=== PATIENT | male | born 1960 | race Caucasian/White ===

== ENCOUNTER 2019-08-10 08:27 | Day surgery (SDC) | payer BC ==
[~2019-08-10 08:27] MED LIST: ACETAMINOPHEN 1,000 MG/100 ML BTL IVPB ONE; CEFAZOLIN 2 Gram 2 GM/50 ML BAG IVPB ONE
[2019-08-10] MEDS ORDERED: LIDOCAINE 2% MDV (20MG/ML) 20ML VIAL IV ONE (08:28)
[2019-08-10] MEDS ORDERED: *PACU ONLY* KETAMINE HCL 10 MG/ML (20ML) VIAL IV ONE (08:28)
[2019-08-10] MEDS ORDERED: BUPIVACAINE 0.25% MPF 30ML VIAL IVP ONE (08:28)
[2019-08-10] MEDS ORDERED: PROPOFOL 10 MG/ML VIAL IV ONE (08:28)
[2019-08-10] MEDS ORDERED: MIDAZOLAM HCL 2MG/2ML VIAL IV ONE (08:28)
[2019-08-10] MEDS ORDERED: BUPIVACAINE LIPOSOME/PF 133MG/10ML VIAL IV ONE (08:28)
[2019-08-10] MEDS ORDERED: DEXAMETHASONE 4 MG/ML 1ML VIAL IVP ONE (08:28)
[2019-08-10] MEDS ORDERED: GLYCOPYRROLATE 0.2 MG/ML ML IV ONE (08:28)
[2019-08-10] MEDS ORDERED: FENTANYL PF 100MCG/2ML VIAL IV ONE (08:28)
[2019-08-10] MEDS ORDERED: RINGERS SOLUTION,LACTATED 1,000 ML IV ONE ×2 (09:15→11:13)
[2019-08-10] MEDS ORDERED: BUPIVACAINE 0.5% W/EPI MPF 30 ML VIAL SQ ONE (11:12)
[2019-08-10] MEDS ORDERED: METHYLPREDNISOLONE 40MG/VIAL IU ONE (11:12)
[2019-08-10] MEDS ORDERED: MORPHINE SULFATE 10MG/1ML **1ML VIAL IU ONE (11:12)
[2019-08-10] MEDS ORDERED: FENTANYL PF 100MCG/2ML VIAL IVP ONE (12:20)
--- NOTE | 2019-08-11 09:00 | Operative Note ---
DATE OF SURGERY: 08/10/2019 PREOPERATIVE DIAGNOSIS: Tear of the rotator cuff on the left. POSTOPERATIVE DIAGNOSES: 1. Massive tear of the rotator cuff on the left. 2. Diffuse synovitis. 3. 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 4. External impingement. 5. Arthrosis left distal clavicle. OPERATION: 1. Left shoulder arthroscopy with synovectomy and interarticular debridement. 2. Left shoulder open acromioplasty, CA ligament resection, subacromial bursectomy. 3. Left shoulder distal clavicle resection. STAFF SURGEON: Juan Antonio Andrea MD ANESTHESIA: Block plus IV sedation. PREPARATION: Chloraprep. INDIVIDUAL CONSIDERATIONS: None. PROCEDURE: The patient was taken to the operating room, placed supine on the operating room table. He had a successful induction of block and then was placed in a semi-seated beach chair position and given IV sedation. His left arm and shoulder were prepped and draped in the usual fashion. Examination under anesthesia showed no instability and good motion. The patient had posterior portal identified for arthroscopy. Skin was infiltrated with 0.5% Marcaine with epinephrine prior. An 18-gauge spinal needle was easily placed in the joint, and the joint was inflated with normal saline. A stab wound was made, and a blunt-tipped trocar for the scope was easily placed in the joint. The joint was inflated with normal saline. An anterior accessory portal was then made just inferior to the intact long head of the biceps tendon in a retrograde fashion with a Wissinger duong, and the joint was completely irrigated out. The patient had an obvious massive tear of the rotator cuff. The labrum was okay. Diffuse synovitis was debrided with a shaver. Glenohumeral joint looked good on the glenoid side. On the humeral side, small area of grade 3 inferiorly which was smoothed with a shaver. Subscap tendon was intact. Long head was intact. After irrigation, portals were closed with juan. The patient had an anterior approach to the subacromial space and distal clavicle. Sharp dissection carried down through skin and subcutaneous tissues. Small veins were coagulated with a Bovie. An anterior deltoid interval was developed. Care was taken not to split the deltoid more than about 4 cm distal to the anterior tip of the acromion to prevent injury to the axillary nerve. Once in the subacromial space, there was a large james of fluid. The deltoid was then taken subperiosteally off the anterior aspect of the acromion, over the top of the intact CA ligament, and off the anterior aspect of a highly degenerated distal clavicle. CA ligament was resected with a Bovie. Distal clavicle was resected with an oscillating saw taking about 1 cm. He had a downsloping acromion, and about 7-8 mm of acromion anteriorly tapering towards posteromedially to include the spurs at the AC joint was resected. The undersurface was smoothed with a rasp. Extremely hypertrophic bursa was then debrided out, and I had a good look at the cuff. Basically, most if it was missing. There was a small whisp of muscle from the teres minor out back but infraspinatus and supraspinatus were basically gone. Subscap I would say 80% remained. Long head remained. There was obviously nothing to repair. After irrigation, the deltoid was reattached to the remaining acromion with multiple #2 Vicryl going directly through the bony acromion. The periosteal cuff of the distal clavicle was closed with running #2 Vicryl. Anterior deltoid interval was closed with running #1 Vicryl. Subcu was closed with 2-0 plus Vicryl and skin was closed with juan. An 18-gauge spinal needle was placed into the subacromial space. It was injected with 15 mL of 0.5% Marcaine with epinephrine along with 10 mg of morphine and 40 mg of Depo-Medrol. A sterile bulky compressive dressing and sling were applied. The patient tolerated the procedure well. Needle and sponge counts were correct. Estimated blood loss was minimal. He was taken back to recovery in good condition. There were no complications. [facility]
== END 2019-08-10 13:03 | disposition home or self-care (01) ==
LOC: SUR 08:27
PROVIDERS: ATTEND Orthopaedic Surgery
DX: M75.101 Unspecified rotator cuff tear or rupture of right shoulder, not specified as traumatic (principal); M65.812 Other synovitis and tenosynovitis, left shoulder; M75.42 Impingement syndrome of left shoulder; M94.212 Chondromalacia, left shoulder; M19.012 Primary osteoarthritis, left shoulder; I10 Essential (primary) hypertension; J44.9 Chronic obstructive pulmonary disease, unspecified
CPT/HCPCS: 29821; 29822; 23120; 23130; 01630; 64415; J3010; J0690; C9290; J2270; 76942; J1030; J7120